=== PATIENT | female | born 2000 | race Two or more races ===

== ENCOUNTER 2025-07-15 03:33 | Emergency (ER) | payer OTHER ==
[~2025-07-15] VITALS: Ht 162.6 cm; Wt 54.4 kg
[2025-07-15] MEDS ORDERED: HYDROXYZINE PAM50 MG PO (05:21)
== END 2025-07-15 05:30 ==
LOC: ER 03:57
DX: G47.00 Insomnia, unspecified (principal); F32.A Depression, unspecified